=== PATIENT | female | born 1970 | race Caucasian/White ===

== ENCOUNTER → 2022-11-24 08:12 | Outpatient (BNVA) | payer OTHER, SELFPAY | PROVIDERS: PCP Nurse Practitioner; Referring Provider Nurse Practitioner; Visit Provider Nurse Practitioner Family | DX: L82.0 Inflamed seborrheic keratosis (principal); D22.5 Melanocytic nevi of trunk; L57.0 Actinic keratosis; L91.8 Other hypertrophic disorders of the skin; L81.4 Other melanin hyperpigmentation; L57.8 Other skin changes due to chronic exposure to nonionizing radiation; L82.1 Other seborrheic keratosis | CPT/HCPCS: 11200; 17000; 17110; 99203 ==

== ENCOUNTER → 2023-11-30 09:04 | Outpatient (BNVA) | payer OTHER, SELFPAY | PROVIDERS: PCP Nurse Practitioner; Visit Provider Nurse Practitioner Family | DX: L85.8 Other specified epidermal thickening (principal); K42.9 Umbilical hernia without obstruction or gangrene; L82.1 Other seborrheic keratosis; D22.5 Melanocytic nevi of trunk; L81.4 Other melanin hyperpigmentation; L57.8 Other skin changes due to chronic exposure to nonionizing radiation | CPT/HCPCS: 99213 ==

== ENCOUNTER → 2024-11-28 08:20 | Outpatient (BNVA) | payer OTHER, SELFPAY | PROVIDERS: PCP Nurse Practitioner; Visit Provider Nurse Practitioner Family | DX: L81.4 Other melanin hyperpigmentation (principal); L57.8 Other skin changes due to chronic exposure to nonionizing radiation; L82.1 Other seborrheic keratosis; L91.8 Other hypertrophic disorders of the skin; L53.8 Other specified erythematous conditions; Z78.9 Other specified health status | CPT/HCPCS: 17110; 99213 ==